=== PATIENT | female | born 1995 | race Caucasian/White ===

== ENCOUNTER 2020-07-14 19:43 | Inpatient (IN) ==
[2020-07-14] MEDS ORDERED: OXYTOCIN 30 UNITS/500 ML BAG IV PRN ×2 (20:34→20:39)
[2020-07-14 20:59] LABS: Hematocrit (blood only) 31.4 % (37-47); Hemoglobin 10.4 g/dL (12.0-16.0); Mean Corpuscular Hemoglobin 26.7 pg (25-34); Mean Corpuscular Hgb Conc 33.1 g/dL (32-36); Mean Corpuscular Volume 80.5 fL (80-100); Mean Platelet Volume 11.2 fL (7.4-10.4); Platelet Count 268 K/uL (130-400); RDW Coefficient of Variation 15.7 % (11.5-14.5); White Blood Count 12.23 K/uL (4.8-10.8)
--- NOTE | 2020-07-14 21:00 | Labor Progress Brief Note ---
Date of Service July 14, 2020 Subjective Patient presented for LOF beginning at 1400 this afternoon, clear fluid, occ ctx not organized. +FM Assessment & Plan Admission and Anticipated Discharge Date Admission Date: PROM, GBS collected 07/11 but not resulted, so unknown. In the setting of a term baby will not start antibiotics. IOL to begin, pitocin ordered, pt agreeable. Vertex on exam. Physical Exam Physical Exam: / Bulging forebag but LOF clear noted. Amnisure positive FHT Cat 1 Cove rare ctx. Results & Data ([facility]) Vital Signs (Past 12 Hours) Vital Signs Pulse BP 07/14/20 20:00 101 H 125/76 07/14/20 19:52 101 H 125/76 Coding Level of Care Code None
[2020-07-14] MEDS: LACTATED RINGER'S 1,000 ML IV PRN (22:37)
[2020-07-15] MEDS ORDERED: ePHEDrine sulfate 50 MG/ML AMP ONE (01:16)
[2020-07-15] MEDS ORDERED: BUPIVACAINE 0.25% 30 ML VIAL ONE (01:17)
[2020-07-15] MEDS ORDERED: SODIUM CHLORIDE 0.9% INJ 10 ML VIAL ONE (01:17)
[2020-07-15] MEDS ORDERED: fentaNYL citrate 100 MCG/2 ML VIAL ONE (01:18)
[2020-07-15] MEDS ORDERED: fentaNYL 2MCG/ML ROPIVACAINE 1.25MG/ML 100 ML BAG EPI ONE (01:18)
--- NOTE | 2020-07-15 01:35 | Anesthesiology Consultation ---
Date of Service July 15, 2020 Assessment & Plan (1) Encounter for pre-operative examination: Chart Review Chart Review: Acceptable Risk for Labor Epidural Consults Requested none ASA ASA3 Proposed Anesthesia Anesthesia Type: Labor Epidural Risk / Benefits Reviewed With: PT / POA / Parent / Guardian, Accepts Plan and Informed Consent Obtained History Height/Weight Height: 5 ft 4 in Weight: 130.635 kg Allergies Allergy/AdvReac Type Severity Reaction Status Date / Time hydrocodone Allergy Intermediate Hallucinati Verified 07/11/20 14:56 ng strawberry Allergy Intermediate Anaphylaxis Verified 07/11/20 14:56 Medications Home Medications Medication Instructions Recorded Confirmed Last Taken levothyroxine 112 mcg capsule 125 mcg PO QAM cap 01/25/20 07/14/20 07/14/20 breast pump #1 ea 01/27/20 07/11/20 Unknown prenat.vits,carter,[id number] 1 tab PO DAILY 06/26/20 07/14/20 07/13/20 [ #2] Active Medications Generic Name Dose Route Start Last Admin Trade Name Freq PRN Reason Stop Dose Admin Oxytocin 30 units in 500 mls @ 1 mls/hr 07/14/20 20:39 07/14/20 22:36 Pitocin IV 07/16/20 20:38 0.06 units/hr .Q24H PRN 1 mls/hr Labor Induction/Augmentation Administration Protocol 0.06 UNITS/HR Lactated Ringer's 1,000 mls @ 125 mls/hr 07/14/20 20:34 07/14/20 22:37 Lr IV 07/16/20 20:33 125 mls/hr .Q8H PRN Administration L&D Protocol Protocol Past Medical History Medical History History of molar Hypothyroidism Nonalcoholic fatty liver disease Trichomonal vulvovaginitis Vaccine strain varicella zoster virus (VZV) DNA detected Varicella vaccine Vomiting during Exercise / Class Metabolic Activity II 4-5 Yardwork/Stairs/Walk up hill Past Family History Family History Mother Diabetes Thyroid disease delivery Father Diabetes Past Surgical History Surgical History H/O wisdom tooth extraction History of adenoidectomy S/P surgical removal of pilonidal cyst Past Anesthesia History No Hx of Anesthesia Complications and No Family Hx of Anesthesia Complications History of PONV No Hx of PONV and No Hx of Motion Sickness Social History Smoking Status: Never smoker Hx Alcohol Use: No Hx Substance Use: No substance use type: does not use Physical Exam Vital Signs Last Vital Signs Temp 98.6 F 07/14/20 22:00 Pulse 89 07/15/20 01:30 BP 129/70 07/14/20 22:40 Pulse Ox 99 07/15/20 01:30 ENMT Mouth: no dentition abnormality Thyromental Distance: > or= 3.5 Finger Breadths Mallampati Class: III Neck normal visual inspection Respiratory normal respiratory effort Auscultation: lungs clear to auscultation bilaterally Cardiovascular Rate/Rhythm: regular rate and regular rhythm Testing Laboratory Results 07/14/20 20:48
[2020-07-15] MEDS ORDERED: diphenhydrAMINE 50 MG/ML VIAL IV PRN (01:51)
[2020-07-15] MEDS ORDERED: NALOXONE HCL 1 MG in SODIUM CHLORIDE 0.9% 1000ML 1,000 ML IV PRN (01:51)
[2020-07-15] MEDS ORDERED: fentaNYL 2MCG/ML ROPIVACAINE 1.25MG/ML 100 ML BAG EPI PRN (01:51)
[2020-07-15] MEDS ORDERED: NALOXONE HCL 0.4 MG/1 ML VIAL/CARP IV PRN (01:51)
[2020-07-15] MEDS ORDERED: ONDANSETRON INJ 2 MG/ML 2 ML VIAL IV PRN (01:51)
[2020-07-15] MEDS ORDERED: ePHEDrine sulfate 50 MG/ML AMP IV PRN (01:51)
[2020-07-15] MEDS: LACTATED RINGER'S 1,000 ML IV PRN (01:58)
[2020-07-15] MEDS ORDERED: ERYTHROMYCIN OP OINT 1 GM PKT ONE (05:45)
[2020-07-15] MEDS ORDERED: DIPHTHERIA/TETANUS/PERTUSSIS 0.5 ML SYR/VIAL IM ONE (07:17)
[2020-07-15] MEDS ORDERED: HYDROCORTISONE ACETATE 25 MG SUPP PR PRN (07:17)
[2020-07-15] MEDS ORDERED: ACETAMINOPHEN 325 MG TAB PO PRN (07:17)
[2020-07-15] MEDS ORDERED: SUPERCREAM 0.870% 15 GM JAR EXT PRN (07:17)
[2020-07-15] MEDS ORDERED: oxyCODONE/ACETAMINOPHEN 5mg/325mg TAB PO PRN (07:17)
[2020-07-15] MEDS ORDERED: BENZOCAINE 20% AER SPR 82.5 GM CAN EXT PRN (07:17)
--- NOTE | 2020-07-15 07:52 | Anesthesia Procedure Note ---
Date of Service July 15, 2020 Anesthesia Post Epidural Note Vital Signs Vital Signs: Temp Pulse Resp BP Pulse Ox 98.6 F 88 18 129/75 99 07/15/20 04:00 07/15/20 07:29 07/15/20 06:20 07/15/20 07:29 07/15/20 05:45 Notes Mental Status: alert / awake / arousable and participated in evaluation Nausea / Vomiting: adequately controlled Pain: adequately controlled Airway Patency, RR, SpO2: stable & adequate BP & HR: stable & adequate Hydration State: stable & adequate Neuraxial Anesthesia: was administered and sensory block is resolving Anesthetic Complications: no major complications apparent and Pt Satisfied with anesthetic care Epidural: Removed without complications and With tip intact
[2020-07-15] MEDS: PRENATAL VITAMIN 1 TAB PO SCH (10:02)
[2020-07-15] MEDS: DOCUSATE SODIUM 100 MG CAP PO SCH ×2 (10:02→22:05)
[2020-07-15] MEDS: LEVOTHYROXINE SODIUM 125 MCG TABLET PO SCH (11:13)
[2020-07-15] MEDS: IBUPROFEN 600 MG TAB PO PRN ×2 (15:33→19:23)
[2020-07-16 06:26] LABS: Hematocrit (blood only) 29.4 % (37-47); Hemoglobin 9.3 g/dL (12.0-16.0); Mean Corpuscular Hemoglobin 25.6 pg (25-34); Mean Corpuscular Hgb Conc 31.6 g/dL (32-36); Mean Platelet Volume 11.5 fL (7.4-10.4); Platelet Count 226 K/uL (130-400); RDW Coefficient of Variation 15.9 % (11.5-14.5); RDW Standard Deviation 46.7 fL (36.4-46.3); Red Blood Count 3.63 M/uL (4.2-5.4); White Blood Count 10.14 K/uL (4.8-10.8)
[2020-07-16] MEDS: LEVOTHYROXINE SODIUM 125 MCG TABLET PO SCH (06:41)
[2020-07-16] MEDS: PRENATAL VITAMIN 1 TAB PO SCH (08:35)
[2020-07-16] MEDS: DOCUSATE SODIUM 100 MG CAP PO SCH (08:35)
--- NOTE | 2020-07-16 09:19 | Obstetrical Progress Note ---
Date of Service July 16, 2020 Assessment & Plan (1) Encounter for care and examination after delivery: Post day 1 s/p . Doing well. Stable for discharge Subjective Ambulation: ambulating normally Voiding: no voiding problems Passing Gas:: Yes Diet Tolerance:: regular diet Lochia:: Moderate Feeding Type:: breast feeding Physical Exam Constitutional WD/WN, vitals as above Respiratory normal respiratory effort; no respiratory distress and no labored breathing Gastrointestinal (Abdomen) Inspection/Auscultation: abdomen normal to inspection; abdomen not distended Percussion/Palpation: abdomen soft; abdomen nontender, no guarding and abdomen not rigid Genitourinary OB Exam Abdomen: + fundal height Fundus: + firm and + relation to umbilicus (Below); not tender and not boggy Results & Data ([facility]) Vital Signs (Past 12 Hours) Vital Signs Temp Pulse Resp BP Pulse Ox 07/16/20 08:39 36.9 C 84 20 137/81 99 07/16/20 05:00 36.8 C 78 18 125/82 07/16/20 00:10 37 C 70 18 132/84
--- NOTE | 2020-07-17 11:41 | Delivery Summary ---
Vaginal Delivery Summary Date of Service July 15, 2020 Vaginal Delivery Summary DIAGNOSES: 1. Puentes intrauterine at 37w1d gestation. 2. PROM with induction of labor. 3. Group B Streptococcus neg. PROCEDURE: Spontaneous vaginal delivery without laceration. SURGEON: Blanca Holcomb MD. MACHINING AND ASSEMBLY SUPERVISOR: None. ESTIMATED BLOOD LOSS: 200 mL. COMPLICATIONS: None. PLACENTA: Spontaneous and intact with a 3-vessel cord. DISPOSITION: Stable to labor and delivery. DESCRIPTION: The patient pushed well and brought the head to in OA position. The 's head was allowed to deliver with contraction force and no further active pushing, with the perineum protected during this time. The shoulders delivered easily with a maternal pushing effort. There was no nuchal cord. The shoulders and body delivered without any difficulty, and the infant wa s placed on the maternal abdomen. It was vigorous and moving all extremities, and making respiratory efforts. The cord was doubly clamped by the MD and then cut by the FOB. The placenta delivered spontaneously and was noted to be intact and with a 3VC. The cervix, vagina and perineum were examined and were found to be without defect requiring repair. The fundus was firm and lochia minimal imm ediately after delivery. [facility] Vaginal Delivery Charge Vaginal Delivery Codes: 51363 global code for the antepartum, delivery, and post-
== END 2020-07-16 10:25 | disposition home or self-care (01) | DRG 807 ==
LOC: OPB 19:43 → 4S1 19:44 → 4S2 07-15 07:45